=== PATIENT | male | born 1995 | race Caucasian/White ===

== ENCOUNTER 2019-11-17 06:39 | Day surgery (SDC) | payer BC ==
[2019-11-14 14:37] VITALS: BMI 34.9
[2019-11-17 07:10] VITALS: TEMP 98.4
[2019-11-17] MEDS ORDERED: LIDOCAINE HCL/PF 2% SDV 5ML VIAL ONE (08:04)
[2019-11-17] MEDS ORDERED: PROPOFOL 20 ML ONE ×3 (08:04)
[2019-11-17 09:29] VITALS: BP 140/86; PULSE 82
--- NOTE | 2019-11-20 18:38 | PATH ---
Surgical Pathology Report Patient Name: GRISELDA RASHEED [facility]. Rec. #: [id number] /Age/Gender: 1995 (Age: 24) / M Account: [id number] Location: [facility] AM[facility] Taken: 11/17/2019 Received: 11/17/2019 Reported: 11/20/2019 Physicians: Corbin Lord M.D. Specimen(s) Received A: GASTRIC ANTRUM B: GASTRIC BODY Clinical History Hematemesis Postoperative diagnosis: Erosive gastritis Final Diagnosis A. GASTRIC ANTRUM, BIOPSY: GASTRIC ANTRAL MUCOSA WITH MILD CHRONIC GASTRITIS. IMMUNOHISTOCHEMICAL STAIN FOR H. PYLORI IS NEGATIVE. B. GASTRIC BODY, BIOPSY: GASTRIC BODY MUCOSA WITH MILD CHRONIC GASTRITIS. IMMUNOHISTOCHEMICAL STAIN FOR H. PYLORI IS NEGATIVE. Positive and negative controls (internal if applicable) show appropriate results. Electronically Signed Whit Rouse M.D. Gross Description A. Received in formalin, labeled "biopsy gastric antrum" are 2 mojica, irregular portions of soft tissue measuring 0.2 and 0.3 cm. in greatest dimension. The specimens are submitted in toto in one cassette. B. Received in formalin, labeled "biopsy gastric body" are 2 mojica, irregular portions of soft tissue measuring 0.1 and 0.4 cm. in greatest dimension. The specimens are submitted in toto in one cassette. 11/17/2019 [facility]11/17/2019
== END 2019-11-17 09:31 | disposition home or self-care (01) ==
LOC: FASU 06:39
PROVIDERS: ATTEND Internal Medicine Gastroenterology
PROC: 0DB68ZX Excision of Stomach, Via Natural or Artificial Opening Endoscopic, Diagnostic (ICD-10-PCS; principal; 2019-11-17 08:00)
DX: K92.0 Hematemesis (principal); K29.50 Unspecified chronic gastritis without bleeding; I10 Essential (primary) hypertension; E66.9 Obesity, unspecified; Z68.34 Body mass index [BMI] 34.0-34.9, adult; J45.909 Unspecified asthma, uncomplicated
CPT/HCPCS: 88305-TC; 88342-TC